=== PATIENT | female | born 1970 | race Asian ===

== ENCOUNTER 2019-04-03 02:56 | Outpatient (CLI) | payer MEDICAID, SELFPAY ==
[2019-04-03] MEDS: Inhaler, Assist Device 1 EACH MC (09:28)
[2019-04-03] MEDS: Albuterol HFA 18 GM 200 PUFF INH IH (09:29)
--- NOTE | 2019-04-03 10:07 | PFT_ITS ---
PULMONARY FUNCTION TEST REPORT DATE OF SERVICE: April 03, 2019 REQUESTING PROVIDER: Izabella Patel Spirometry shows mild obstructive airways disease with no significant bronchodilator response. Lung volumes show no evidence of restriction. Diffusion capacity mildly reduced, even when corrected to alveolar volume. Airways resistance normal. IMPRESSION: Borderline mild obstructive airways disease with no significant bronchodilator response. This is associated with borderline mild diffusion defect. Clinical correlation recommended. When this study was compared to previous one from 01/20/09, the patient has a total of 370 cc's decline in FVC and 220 cc's decline in FEV1. CRISELDA/enedelia D/
== END 2019-04-03 03:16 ==
PROVIDERS: PCP Internal Medicine; Visit Provider Internal Medicine
DX: R05 Cough (principal); J45.909 Unspecified asthma, uncomplicated
CPT/HCPCS: 94060; 94726; 94729

== ENCOUNTER 2019-05-02 09:25 | Outpatient (REF) | payer MEDICAID, SELFPAY ==
--- NOTE | 2019-05-02 09:00 | PAPFT_PTH ---
PATIENT: JACKELIN FREY LOC: [facility] U#:[id number] AGE/SX: 49/F ROOM: RE05/02/[address]: Dieudonne Olivarez MD : [id number] BED: DIS: 05/02/2019 SPEC #: [id number] RECD: 05/02/19 12:39 STATUS: DAVID RETara #: [id number] STEFANIE: 05/02/19 09:[address]: Dieudonne Olivarez DEPT: FORMERLY [facility], [facility] Cytology RECD BY: Shalonda Wilkerson ENTERED: 05/02/19 12:40 SP TYPE: PAPFT OTHR DR: Izabella Patel Tissues: 1 - CX/ENDOCX FOR PAP SMEARS Procedures: PAP THIN PREP/[facility] Screening HPV DNA PROBE Comments: [id number]
== END 2019-05-02 09:45 ==
LOC: LBN 09:25
PROVIDERS: PCP Internal Medicine; Visit Provider Obstetrics & Gynecology
DX: Z12.4 Encounter for screening for malignant neoplasm of cervix (principal); Z11.51 Encounter for screening for human papillomavirus (HPV)
CPT/HCPCS: 88142; 87624